=== PATIENT | male | born 1965 | race Caucasian/White ===

== ENCOUNTER 2018-12-25 18:55 | Emergency (ER) | payer SELFPAY ==
[~2018-12-25] VITALS: Ht 172.7 cm; Wt 78.1 kg
[2018-12-25 19:08] VITALS: BP 128/83; PULSE 76; RESP 19; Ht 172.7 cm; Wt 78.1 kg
[2018-12-25] MEDS ORDERED: KETOROLAC 30 MG INJ IM STA (20:22)
[2018-12-25] MEDS ORDERED: ACET325T33 PO (20:24)
[2018-12-25] MEDS ORDERED: NAPR-985 PO (20:24)
--- NOTE | 2018-12-25 20:31 | ERD ---
ER Documentation Chief Complaint Chief Complaint RIGHT KNEE PAIN X2DAYS; NO KNOWN INJ; "WALKS ALOT" HPI This is a 53-year-old male patient who presents emergency room with pain in right knee. States he is homeless and has recently been walking a lot in house slippers. States 2 days ago he walked 20 miles and that is when his right knee started to hurt. She is ambulatory with slow steady gait. Denies medical problems. ROS All systems reviewed and are negative except as per history of present illness. Medications Home Meds Active Scripts Naproxen* (Naprosyn*) 500 Mg Tablet, 500 MG PO BID PRN for PAIN AND/OR INFLAMMATION, #30 TAB Prov:MARA HAYNES QA [employer] 12/25/18 Acetaminophen* (Tylenol*) 325 Mg Tablet, 2 TAB PO Q6 PRN for PAIN AND OR ELEVATE D TEMP, #20 TAB Prov:MARA HAYNES QA [employer]INE[employer] 12/25/18 Allergies Allergies: Coded Allergies: No Known Allergy (Unverified , 12/25/18) PMhx/Soc Medical and Surgical Hx: pt denies Medical Hx History of Surgery: No Anesthesia Reaction: No Hx Neurological Disorder: No Hx Cardiac Disorders: No Hx Psychiatric Problems: No Hx Miscellaneous Medical Probl: No Hx Alcohol Use: No Hx Substance Use: Yes (marijuana ) Hx Tobacco Use: No Smoking Status: Current every day smoker FmHx Family History: No diabetes, No coronary disease, No other Physical Exam Vitals Vital Signs Date Temp Pulse Resp B/P (MAP) Pulse Ox O2 O2 Flow FiO2 Time Delivery Rate 12/25/18 98.4 76 19 128/83 98 19:08 (98) Physical Exam Const: No acute distress Head: Atraumatic Eyes: Normal Conjunctiva, perrl ENT: Normal External Ears, Nose and Mouth. Neck: Full range of motion. No meningismus. No lymphadenopathy Resp: Clear to auscultation bilaterally, wheezing Cardio: Regular rate and rhythm, no murmurs Skin: No petechiae or rashes Ext: No cyanosis, or edema. Lower Extremity - bilateral: Skin: No laceration, no bruising, no swelling, normothermic Compartments: Soft, neg ant/post drawer, neg valgus/varus Motor: Full active range of motion hip/knee/ankle/foot Sensation: Intact to light touch Bones: Nontender pelvis/knee/proximal tibia/ malleoli/foot Joints: No effusion or laxity Pulses/Perfusion: 2+ DP, Capillary refill < 2 seconds Neur: Awake and alert Psych: Normal Mood and Affect Results 24 hrs Current Medications Medications Dose Sig/Genesis Start Time Status Last (Trade) Ordered Route PRN Stop Time Admin Dose Reason Admin Ketorolac 30 mg ONCE STAT 12/25/18 DC Tromethamine IM 20:22 (Toradol) 12/25/18 20:24 Procedures/MDM This is a 53-year-old male patient who presents to emergency room with pain in the right knee. ED COURSE: The patient was stable throughout ED course. DIAGNOSTIC IMAGING: Not indicated PROCEDURES: Ceciilo wrap placement, crutch training MEDICATIONS GIVEN: Toradol Patient tolerated medication well with no adverse reactions. Patient reported improvement in pain. MDM: Patient's extremity symptoms have stabilized while they have been evaluated in the department and are appropriate for outpatient follow up. No evidence of compartment syndrome, neurologic injury, vascular injury, open joint, open fracture, tendon laceration, or foreign body. DISPOSITION: The patient has been discharge home to follow-up with community physician. Departure Diagnosis: Primary Impression: Knee pain Condition: Stable Patient Instructions: Knee Sprain Referrals: COMMUNITY CLINICS YOU HAVE RECEIVED A MEDICAL SCREENING EXAM AND THE RESULTS INDICATE THAT YOU DO NOT HAVE A CONDITION THAT REQUIRES URGENT TREATMENT IN THE EMERGENCY DEPARTMENT. FURTHER EVALUATION AND TREATMENT OF YOUR CONDITION CAN WAIT UNTIL YOU ARE SEEN IN YOUR DOCTORS OFFICE WITHIN THE NEXT 1-2 DAYS. IT IS YOUR RESPONSIBILITY TO MAKE AN APPOINTMENT FOR FOLOW-UP CARE. IF YOU HAVE A PRIMARY DOCTOR --you should call your primary doctor and schedule an appointment IF YOU DO NOT HAVE A PRIMARY DOCTOR YOU CAN CALL OUR PHYSICIAN REFERRAL HOTLINE AT IF YOU CAN NOT AFFORD TO SEE A PHYSICIAN YOU CAN CHOSE FROM THE FOLLOWING [facility] [id number] [facility] [address] [facility] [address] [facility] [address] [facility] [address] [facility] Additional Instructions: Thank you very much for allowing us to participate in your care. Your health and safety is our top priority at [facility]. You have been provided with a resource list of community physicians and clinics. Please establish care with community clinic for your health care needs. Have prescriptions filled and follow precisely the directions on the label. If the symptoms get worse and your provider is unavailable, return to the Emergency Department immediately. Use crutches and Cecilio wrap for 7 to 10 days or until pain in right knee has resolved. Use acetaminophen and Naprosyn as needed for pain and discomfort. Try to avoid walking or standing for prolonged time. MARA HAYNES NP December 25, 2018 20:31
== END 2018-12-25 20:53 | disposition home or self-care (01) ==
LOC: FTE 18:55
DX: M25.561 Pain in right knee (principal); F17.210 Nicotine dependence, cigarettes, uncomplicated
CPT/HCPCS: 96372; 99284; J1885